=== PATIENT | female | born 1985 | race Caucasian/White ===

== ENCOUNTER 2017-03-30 22:18 | Emergency (ER) | payer BC, OTHER ==
--- NOTE | 2017-03-30 23:21 | ERNOTE ---
Upper Extremity HPI - General Time Seen by Provider: 03/30/17 23:17 Source: patient Exam Limitations: no limitations - Immun/Allergies/Home Medications Immunizations: IMMUNIZATION HX Immunizations Up to Date Yes History of Influenza Vaccine No Hx Pneumococcal Vaccination No Allergies/Adverse Reactions: Allergies Allergy/AdvReac Type Severity Reaction Status Date / Time cefuroxime axetil Allergy Severe Anaphylaxis Verified 04/21/16 07:05 [From Ceftin] bupropion HCl Allergy Intermediate Shortness Verified 04/21/16 07:05 [From Wellbutrin] of Breath Home Medications: HOME MEDICATIONS Alprazolam [Xanax] 0.5 - 1 mg PO BID PRN 02/18/14 [Last Taken Unknown] - History of Present Illness Narrative: laceration to left thumb with knife while cleaning. this happened at home prior to presentation to ED. She states last Td UTD Review of Systems - Review of Systems Constitutional: Present: no symptoms reported EYE: Present: no symptoms reported ENT: Present: no symptoms reported Respiratory: Present: no symptoms reported Cardiology: Present: no symptoms reported Gastrointestinal/Abdominal: Present: no symptoms reported Musculoskeletal: Present: See HPI - laceration to left thumg - Patient's Past Medical History Patient History - Medical: Anemia, Fibromyalgia, GERD, UTI'S, Other Patient History - Cardiac/Respiratory: Hypertension Patient History - Cancer: No Hx of Cancer Patient History - Surgical Procedures: , EGD, T & A, Other Patient History - Other: None LMP (Calendar): 04/01/16 - Family History Mother Family History - Medical: Depression Family History - Cardiac/Respiratory: Hypertension Brother Family History - Medical: , No pertinent hx Family History - Cardiac/Respiratory: Asthma - Social History Living Situations: home Abuse History: No History of abuse Psych History: Hx of Anxiety, Current tx/ever been on anti-depressants or anti- anxiety meds Smoking Status: Current every day smoker Patient requests Smoking Cessation Consult: No Initiate information on Smoking Cessation: No Alcohol Use: none Drug Use: none - Immunizations Immunizations Up to Date: Yes Hx Pneumococcal Vaccination: No History of Influenza Vaccine: No Physical Exam - Physical Exam General Appearance: Present: wd/wn, alert, no apparent distress Ears, Nose, Throat: Present: normal ENT inspection Respiratory: Present: no respiratory distress, normal breath sounds, lungs clear Cardiovascular/Chest: Present: regular rate, rhythm, no murmur, normal peripheral pulses Extremity Exam: Present: other - there is a 1.5 cm laceration to dorsum of left thumb Bleeding has stopped. pt is well able to flex her left thumb with and without resistance ED Progress - Vital Signs Patient's Vital Signs:: I have reviewed the patient's vital signs. Vital Signs: Vital Signs 03/30/17 22:45 Temperature 37.1 C Pulse Rate 72 Respiratory 18 Rate Blood Pressure 131/86 O2 Sat by Pulse 100 Oximetry - Progress/Reassessment Chief Complaint: Upper Extremity Injury/Problem Plan - Plan Plan: area was cleaned and anesthetized with 1cc of l% Lidocaine with epi by infiltrating the edges of the laceration. Then area was cleaned thoroughly with Betadine and water. then using 5-0 prolene sutures area closure was achieved with three sutures. Pressure dressing and splint applied to thumb Departure Clinical Impression: Laceration of thumb Qualifiers: Encounter type: initial encounter Laterality: left Qualified Code(s): S61.012A - Laceration without foreign body of left thumb without damage to nail, initial encounter - Departure Disposition: Home self-care Condition: Good Instructions: Laceration Care, Adult, [id number] Referrals: Latia Ortega DO [Primary Care Provider] -
[2017-03-30] MEDS ORDERED: DIPHTH,PERTUSS(ACELL),TET VAC 0.5 ML VIAL IM ONE (23:54)
[2017-03-30] MEDS ORDERED: CEPHALEXIN MONOHYDRATE 250 MG CAPSULE PO ONE (23:55)
[2017-03-31] MEDS ORDERED: CEPHALEXIN MONOHYDRATE 250 MG CAPSULE ONE ×2 (00:08→00:14)
[2017-03-31] MEDS ORDERED: DIPHTH,PERTUSS(ACELL),TET VAC 0.5 ML VIAL IM ONE ×2 (00:09→00:14)
[2017-03-31 01:50] VITALS: BP 136/78
== END 2017-03-31 00:22 | disposition home or self-care (01) ==
LOC: ER 22:18
PROC: 0HQGXZZ Repair Left Hand Skin, External Approach (ICD-10-PCS; principal; 2017-03-30)
DX: S61.012A Laceration without foreign body of left thumb without damage to nail, initial encounter (principal); W26.0XXA Contact with knife, initial encounter; Y93.89 Activity, other specified; Y92.009 Unspecified place in unspecified non-institutional (private) residence as the place of occurrence of the external cause; Z23 Encounter for immunization